=== PATIENT | female | born 1995 | race Caucasian/White ===

== ENCOUNTER 2017-02-16 20:08 | Emergency (ER) | payer OTHER ==
[~2017-02-16] VITALS: Ht 170.2 cm; Wt 56.4 kg
[2017-02-16 20:11] VITALS: TEMP 98.9
[2017-02-16] MEDS ORDERED: BIRTH CONTROL (20:32)
[2017-02-16 20:42] LABS: COLLECTION METHOD CLEAN CATCH
[2017-02-16 20:54] LABS: MUCOUS Present /lpf; PH 6 (5-8); SQUAMOUS EPITHELIAL 0-2 /hpf; URINE APPEARANCE Hazy; URINE BACTERIA Rare /hpf; URINE BILIRUBIN Negative (NEGATIVE); URINE BLOOD Negative (NEGATIVE); URINE COLOR Yellow; URINE GLUCOSE Negative (NEGATIVE); URINE KETONE Negative (NEGATIVE); URINE LEUKOCYTE ESTERASE Negative (NEGATIVE); URINE PROTEIN(semi-quant) Negative (NEGATIVE); URINE RBC 0-2 /hpf; URINE UROBILINOGEN Negative (NEGATIVE)
[2017-02-16 21:32] LABS: BASO # 0.1 (0.0-0.2); BASO % 0.8 % (0.0-2.0); EOS # 0.1 (0.0-0.7); EOS % 0.8 % (0-4.0); GRAN % 65.2 % (42.2-75.2); HEMATOCRIT 43.6 % (35.0-45.0); HEMOGLOBIN 15.5 g/dl (12.0-15.0); LYMPH % 26.3 % (20.0-51.0); MEAN CELL VOLUME 86 fl (80.0-95.0); MEAN CORPUSCULAR HEMOGLOBIN 31 pg (26.0-32.0); MEAN CORPUSCULAR HGB CONC 36 g/dl (33.0-37.0); MEAN PLATELET VOLUME 11.2 fl (7.4-10.4); MONO # 0.5 (0.1-0.6); MONO % 6.6 % (1.7-9.3); PLATELET COUNT 321 K/mm3 (130-400); RED BLOOD COUNT 5.07 M/mm3 (4.10-5.30); WHITE BLOOD COUNT 7.6 K/mm3 (4.8-10.8)
[2017-02-16 22:42] LABS: ADJUSTED CALCIUM 8.3 mg/dL (8.4-10.2); ALBUMIN 4.9 gm/dL (3.5-5.0); BILIRUBIN,TOTAL 3.1 mg/dL (0.0-1.0); CREATININE, serum 0.79 mg/dL (0.52-1.25); POTASSIUM 3.2 mmol/L (3.4-5.0); TOTAL PROTEIN 8.3 gm/dL (6.4-8.2)
[2017-02-16] MEDS ORDERED: CEPHALEXIN500 M1 PO (23:21)
[2017-02-16 23:35] VITALS: BP 129/77; PULSE 72
== END 2017-02-16 23:37 | disposition home or self-care (01) ==
LOC: COL.ER 20:08
PROVIDERS: Emergency Medicine
DX: N39.0 Urinary tract infection, site not specified (principal); R42 Dizziness and giddiness; F41.9 Anxiety disorder, unspecified; E80.4 Gilbert syndrome; Z32.02 Encounter for pregnancy test, result negative
CPT/HCPCS: J7030